=== PATIENT | female | born 1980 | race Caucasian/White ===

== ENCOUNTER 2020-02-21 09:18 | Outpatient (CLI) | payer OTHER ==
--- NOTE | 2020-02-21 10:41 | RAD ---
RIGHT KNEE 4 VIEWS: Date: 02/21/2020 HISTORY: Right knee pain. FINDINGS/IMPRESSION: No fracture, dislocation, or bone destruction is seen. There is fullness in the suprapatellar pouch, suspicious for joint effusion. POS: AH
== END 2020-02-21 09:19 | disposition home or self-care (01) ==
LOC: BICRAD 09:18
DX: S83.91XA Sprain of unspecified site of right knee, initial encounter (principal)

== ENCOUNTER 2020-03-11 12:38 | Outpatient (CLI) | payer OTHER ==
--- NOTE | 2020-03-11 15:48 | MRI ---
MRI RIGHT KNEE WITHOUT CONTRAST: Date: 03/11/2020 HISTORY: Strain to right knee. COMPARISON: Radiograph dated 02/21/2020. FINDINGS: Medial Meniscus: Full thickness radial tear posterior horn medial meniscus with a 3-4 mm gap. Tear is at the posterior horn/root attachment 8 mm from the footprint. 3 mm medial gutter extrusion medial meniscal body. Lateral Meniscus: Intact. ACL, PCL, MCL, and LCL are all intact. Extensor Mechanism: Quadriceps tendon, patella, and patella tendon are all intact. Cartilage: Patellofemoral compartment: A few 50-60% chondral fissures at the medial and lateral patellar facets . Trochlea is intact. Medial compartment: Low grade superficial chondral fraying. Lateral compartment: 50-60% chondral fissures of the posterior weightbearing surface lateral tibial plateau. Soft Tissues: Moderate joint effusion. Edema along the posterior medial meniscus. IMPRESSION: 1. Full thickness radial tear posterior horn medial meniscus near the root with a 3-4 mm gap. Gutter extrusion 3 mm medial meniscal body. 2. A few Grade III chondral fissures of the posterior weightbearing surface lateral tibial plateau a s well as of the medial and lateral patellar facets with the remainder of the cartilage intact. 3. Mild pericapsular edema along the posterior medial meniscal tear. POS: HOME
--- NOTE | 2020-03-11 16:07 | MRI ---
MRI LEFT KNEE WITHOUT CONTRAST: Date: 03/11/2020 HISTORY: Strain of left knee. [id number]. COMPARISON: None. FINDINGS: Medial Meniscus: Complex tear throughout the posterior horn medial meniscus is seen to the root with a few fibers hunter ining. There is gutter extrusion and loss of hoop stress. Lateral Meniscus: Free edge fraying throughout the lateral meniscal body with loss of the free edge of the posterior ho rn. No ACL graft is appreciated. PCL is intact. MCL and LCL are intact. Extensor Mechanism: The quadriceps tendon, patella, and patellar tendon are intact. Patellar tendon ACL graft harvest site is intact. Cartilage: Patellofemoral compartment: High grade chondral full thickness delamination at risk for displacement of the central patellar apex and lateral patellar facet. There is also extensive chondral fissuring and delamination along the trochlear groove and lateral trochlea. Medial compartment: Likely a prior OATS procedure of medial femoral condyle with adequate corporatio n of the bone plug. High grade chondral fissures along the posterior weightbearing surface medial fem oral condyle. Lateral compartment: 25-50% chondral fissures throughout the posterior weightbearing surface lateral tibial plateau. Bones: Large medial and lateral compartment osteophyte formation. No acute fracture. IMPRESSION: 1. Absent ACL graft. 2. Intact medial femoral condyle OATS graft. 3. Volume loss throughout the medial meniscus with loss of hoop stress and gutter extrusion. Vertica l longitudinal tear throughout the posterior horn. 4. Free edge fraying the lateral meniscal body with absent free edge and intermediate zone of fund raiser ior horn. 5. Large tricompartmental osteophytes. 6. Full thickness chondral delamination and fissuring of the patellofemoral compartments, also with large osteophytes. POS: HOME
== END 2020-03-11 12:39 | disposition home or self-care (01) ==
LOC: SCSMRI 12:38
DX: S83.91XA Sprain of unspecified site of right knee, initial encounter (principal); M25.761 Osteophyte, right knee; S83.241A Other tear of medial meniscus, current injury, right knee, initial encounter

== ENCOUNTER 2021-06-03 13:12 | Outpatient (CLI) | payer BC | END 2021-06-03 13:13 | disposition home or self-care (01) | LOC: LABBT 13:12 | PROVIDERS: ATTEND Specialist | DX: Z01.812 Encounter for preprocedural laboratory examination (principal); J35.01 Chronic tonsillitis; R06.83 Snoring; G47.30 Sleep apnea, unspecified | CPT/HCPCS: 85014 ==

== ENCOUNTER 2021-12-01 13:25 | Outpatient (CLI) | payer BC ==
[2021-12-01 14:24] LABS: BHCG - Serum Negative (NEGATIVE); Pregs Control Background? CLEAR/WHITE (CLR/WHITE); Pregs Control Bar Appear? YES (CONTROL BAR)
== END 2021-12-01 13:26 | disposition home or self-care (01) ==
LOC: LABBT 13:25
PROVIDERS: ATTEND Specialist
DX: Z01.812 Encounter for preprocedural laboratory examination (principal); J35.01 Chronic tonsillitis; Z20.822 Contact with and (suspected) exposure to COVID-19
CPT/HCPCS: 84703; 85014; 87811

== ENCOUNTER 2022-05-20 16:46 | Outpatient (CLI) | payer BC ==
[2022-05-20 17:28] LABS: BHCG - Serum Negative (NEGATIVE); Pregs Control Background? CLEAR/WHITE (CLR/WHITE); Pregs Control Bar Appear? YES (CONTROL BAR)
== END 2022-05-20 16:47 | disposition home or self-care (01) ==
LOC: LABBT 16:46
PROVIDERS: ATTEND Specialist
DX: Z01.812 Encounter for preprocedural laboratory examination (principal); J35.3 Hypertrophy of tonsils with hypertrophy of adenoids; J35.01 Chronic tonsillitis
CPT/HCPCS: 84703; 85014

== ENCOUNTER 2022-05-21 06:44 | Day surgery (SDC) | payer BC ==
[2022-05-20 09:51] VITALS: BMI 30.4
[2022-05-21] MEDS ORDERED: Ferric Subsulfate (ASTRINGYN) 8 GM VIAL ONE (09:12)
[2022-05-21] MEDS ORDERED: Fentanyl 100 MCG/2 ML VIAL ONE ×2 (09:16→10:28)
[2022-05-21] MEDS ORDERED: Midazolam HCl 2 mg/2 ml Vial ONE (09:17)
[2022-05-21] MEDS ORDERED: Famotidine/PF 20 mg/2ml Vial ONE (09:22)
[2022-05-21] MEDS ORDERED: SUGAMMADEX SODIUM 200 MG/2 ML VIAL ONE (09:22)
[2022-05-21] MEDS ORDERED: Ondansetron PF 4 MG/2 ML Vial ONE (09:25)
[2022-05-21] MEDS ORDERED: Rocuronium Bromide 10 MG/ML (10ML VIAL) ONE (09:25)
[2022-05-21] MEDS ORDERED: Lidocaine 1% PF 5 ML VIAL ONE (09:25)
[2022-05-21] MEDS ORDERED: PROPOFOL 200 MG/20 ML VIAL ONE (09:25)
[2022-05-21] MEDS ORDERED: ePHEDrine 50 MG/ML VIAL ONE (09:25)
[2022-05-21] MEDS ORDERED: Dexamethasone 20 MG/5 ML VIAL ONE (09:25)
[2022-05-21] MEDS ORDERED: Hydrocodone-Acetamin 15 ML UDCUP ONE (11:23)
== END 2022-05-21 12:04 | disposition home or self-care (01) ==
LOC: SDC 06:44
PROVIDERS: ATTEND Specialist
PROC: 0CTPXZZ Resection of Tonsils, External Approach (ICD-10-PCS; principal; 2022-05-21)
DX: J35.01 Chronic tonsillitis (principal); J34.89 Other specified disorders of nose and nasal sinuses; K21.9 Gastro-esophageal reflux disease without esophagitis; Z87.891 Personal history of nicotine dependence; Z79.899 Other long term (current) drug therapy; Z88.1 Allergy status to other antibiotic agents; Z88.2 Allergy status to sulfonamides; Z88.8 Allergy status to other drugs, medicaments and biological substances
CPT/HCPCS: 88304; J1100; J2250; J2405; J2704; J3010; J3490; S0028

== ENCOUNTER 2024-04-05 15:52 | Outpatient (CLI) | payer BC ==
[2024-04-05 16:36] LABS: #Basophils 0.07 10x3/uL (0.0-0.2); %Basophils 0.8 % (0.0-1.0); %Eosinophils 2.5 % (0.0-10.0); %Lymphocytes 32.5 % (21.0-51.0); %Monocytes 8.6 % (0.0-10.0); %Neutrophils 55.4 % (42.0-75.0); Hematocrit 42.6 % (36.0-47.0); Hemoglobin 14.8 g/dL (12.0-16.0); Mean Corpuscular HGB CONC 34.7 g/dL (32.0-36.0); Mean Corpuscular Hemoglobin 32.7 pg (27.0-31.0); Mean Corpuscular Volume 94.2 fL (78.0-98.0); Mean Platelet Volume 12.3 fL (7.4-10.4); Platelet Count 204 10x3/uL (130-400); RBC Distribution Width 13.2 % (11.5-14.5); Red Blood Cell (RBC) Count 4.52 mill/uL (4.20-5.40)
[2024-04-05 16:41] LABS: Bilirubin Negative (Negative); Blood, Urine Negative (Negative); Clarity Clear (Clear); Glucose, Urine (Dipstick) Normal (Negative); Ketone, Urine Negative (Negative); Leukocyte Negative Leu/uL (Negative); Nitrite Negative (Negative); Protein, Urine (Dipstick) Negative (Neg-Trace); Specific Gravity, Urine 1.009 (1.002-1.036); Urobilinogen Normal mg/dL (Less than 2); pH, Urine 6.5 (5.0-9.0)
[2024-04-05 16:53] LABS: PTT 27.7 sec (22.9-36.1); Prothrombin Time 13.6 sec (12.0-14.7)
[2024-04-05 17:08] LABS: Anion Gap 16 mmol/L (10-20); BUN (Urea Nitrogen) 9 mg/dL (7.0-18.7); Calc. Creatinine Clearance 0 mL/min (70-130); Calcium 9.1 mg/dL (7.8-10.44); Carbon Dioxide 21 mmol/L (22-29); Chloride 105 mmol/L (98-107); Estimated GFR 110; Glucose 97 mg/dL (70-105); Potassium 3.7 mmol/L (3.5-5.1); Sodium 138 mmol/L (136-145)
== END 2024-04-05 15:53 | disposition home or self-care (01) ==
LOC: LABBT 15:52
PROVIDERS: ATTEND Orthopaedic Surgery
DX: Z01.818 Encounter for other preprocedural examination (principal); M17.0 Bilateral primary osteoarthritis of knee
CPT/HCPCS: 71046; 80048; 81003; 85025; 85610; 85730; 87081; 93005; 93010

== ENCOUNTER 2024-04-10 06:50 | Observation (INO) | payer BC ==
[2024-04-05 16:20] VITALS: BMI 32.6
[2024-04-10] MEDS ORDERED: Tranexamic Acid 1,000 MG/10 ML VIAL ONE (07:06)
[2024-04-10] MEDS ORDERED: Vancomycin (BATCH) 1.5 GM/300 ML BAG ONE (07:07)
[2024-04-10] MEDS ORDERED: CEFAZOLIN 2 GM VIAL ONE (07:07)
[2024-04-10] MEDS ORDERED: Sodium Chloride 0.9% 100 ML ONE (07:07)
[2024-04-10] MEDS ORDERED: Midazolam HCl 2 mg/2 ml Vial ONE ×2 (07:29→07:47)
[2024-04-10] MEDS ORDERED: Ropivacaine 0.5% HCl/PF (150 MG/30 ML VIAL) ONE (07:29)
[2024-04-10] MEDS ORDERED: fentaNYL 50 mcg/mL 1 mL Vial ONE ×5 (07:29→13:16)
[2024-04-10] MEDS ORDERED: Acetaminophen 500 MG TAB ONE (07:40)
[2024-04-10] MEDS ORDERED: PROPOFOL 20 ML ONE (07:47)
[2024-04-10] MEDS ORDERED: fentaNYL PF 100 MCG/2 ML SYRINGE ONE ×2 (07:47→09:14)
[2024-04-10] MEDS ORDERED: Clindamycin/D5W 600 mg/50 ml Premix Bag ONE (07:49)
[2024-04-10] MEDS ORDERED: Bupivacaine 0.25% HCL 30 ML VIAL ONE (07:52)
[2024-04-10] MEDS ORDERED: EPINEPHrine 1 MG/ML VIAL ONE (07:52)
[2024-04-10] MEDS ORDERED: methylPREDNISolone Acetate 40 mg/ml Vial ONE (08:08)
[2024-04-10] MEDS ORDERED: Lidocaine 1% (PF) 30 ML VIAL ONE (08:08)
[2024-04-10] MEDS ORDERED: Ondansetron PF 4 MG/2 ML Vial IVP PRN ×2 (08:45→11:26)
[2024-04-10] MEDS ORDERED: Dexamethasone 4 mg/ml Vial ONE (08:45)
[2024-04-10] MEDS ORDERED: Promethazine HCl 25 MG/ML VIAL IM PRN ×2 (08:45→11:26)
[2024-04-10] MEDS ORDERED: HYDROcodone/Acetaminophen 10/325 mg Tablet PO PRN (08:45)
[2024-04-10] MEDS ORDERED: Ondansetron PF 4 MG/2 ML Vial ONE (08:45)
[2024-04-10] MEDS ORDERED: Zolpidem Tartrate 5 MG TAB PO PRN ×2 (08:45→11:26)
[2024-04-10] MEDS ORDERED: traMADol HCl 50 MG TAB PO PRN ×2 (08:45)
[2024-04-10] MEDS ORDERED: Ropivacaine 0.2% 550 ML 550 ML NERVE BLCK SCH (08:45)
[2024-04-10] MEDS ORDERED: HYDROmorphone 0.5 MG/0.5 ML SYRINGE ONE ×2 (09:59→12:10)
[2024-04-10] MEDS ORDERED: HYDROmorphone 2 MG/ML VIAL ONE (10:28)
[2024-04-10] MEDS ORDERED: Acetaminophen 325 MG TAB PO PRN (11:26)
[2024-04-10] MEDS ORDERED: diphenhydrAMINE 25 MG CAP PO PRN (11:26)
[2024-04-10] MEDS ORDERED: Tranexamic Acid 1,000 MG in Sodium Chloride 0.9% 100 ML IVPB SCH (11:30)
[2024-04-10] MEDS: Ketorolac Tromethamine 30 MG (1 mL) VIAL IVP SCH (14:59)
[2024-04-10] MEDS: Sodium Chloride 0.9% 1,000 ML IV SCH (14:59)
[2024-04-10] MEDS: Clindamycin/D5W 900 MG in Premix 1 BAG IVPB SCH (15:11)
[2024-04-10] MEDS: fentaNYL 50 mcg/mL 1 mL Vial SLOW IVP PRN (15:13)
[2024-04-10] MEDS: HYDROcodone/Acetaminophen 10/325 mg Tablet PO PRN (15:14)
[2024-04-10] MEDS: Vancomycin (BATCH) 1.5 GM in Premix 1 BAG IVPB SCH (20:30)
[2024-04-10] MEDS ORDERED: AMPHETAMINE PO SCH (21:00)
[2024-04-10] MEDS ORDERED: DEXTROAMPHETAMINE PO SCH (21:00)
[2024-04-10] MEDS: Aspirin 81 mg Enteric Coated Tablet PO SCH (21:09)
[2024-04-11 03:53] VITALS: TEMP 98.4
[2024-04-11 06:02] LABS: Hemoglobin 11.5 g/dL (12.0-16.0); Mean Corpuscular HGB CONC 33.8 g/dL (32.0-36.0); Mean Corpuscular Hemoglobin 33.2 pg (27.0-31.0); Mean Corpuscular Volume 98.3 fL (78.0-98.0); Mean Platelet Volume 12.2 fL (7.4-10.4); Platelet Count 198 10x3/uL (130-400); RBC Distribution Width 13.3 % (11.5-14.5); Red Blood Cell (RBC) Count 3.46 mill/uL (4.20-5.40)
[2024-04-11 08:09] VITALS: BP 122/74
[2024-04-11] MEDS: Ferrous Gluconate 324 MG TAB PO SCH (08:11)
[2024-04-11] MEDS: Pantoprazole DR 40 MG TAB PO SCH (08:11)
[2024-04-11] MEDS: Senokot S 8.6-50 MG TAB PO SCH (08:11)
[2024-04-11] MEDS: Sertraline 100 MG TAB PO SCH (08:11)
[2024-04-11] MEDS: Multivitamin W/ Minerals 1 TAB PO SCH (08:11)
[2024-04-11] MEDS: FLU (Fluarix Triv) TS24-25(6MOS UP)/PF 45 MCG/0.5 ML Syringe IM ONE (11:06)
== END 2024-04-11 11:09 | disposition home or self-care (01) ==
LOC: SDC 06:50 → SURG A 13:43 → SDC 16:06
PROVIDERS: ADMIT Orthopaedic Surgery; ATTEND Orthopaedic Surgery
PROC: 0SRD0JZ Replacement of Left Knee Joint with Synthetic Substitute, Open Approach (ICD-10-PCS; principal; 2024-04-11)
PROC: 0S9C3ZZ Drainage of Right Knee Joint, Percutaneous Approach (ICD-10-PCS; 2024-04-11)
PROC: 2W5RXYZ Removal of Other Device on Left Lower Leg (ICD-10-PCS; 2024-04-11)
DX: M17.0 Bilateral primary osteoarthritis of knee (principal); K21.9 Gastro-esophageal reflux disease without esophagitis; F32.A Depression, unspecified; F90.9 Attention-deficit hyperactivity disorder, unspecified type; Z98.890 Other specified postprocedural states; Z79.899 Other long term (current) drug therapy; Z87.891 Personal history of nicotine dependence; Z88.2 Allergy status to sulfonamides; Z88.8 Allergy status to other drugs, medicaments and biological substances; Z96.659 Presence of unspecified artificial knee joint
CPT/HCPCS: 0055T; 20610; 20680; 27447; 64448; 36415; 85027; A4306; C1713; C1776; C1889; J0171; J0665; J1010; J1100; J1885; J2250; J2405; J2704; J2795; J3010; J3370; J3490; J7030

== ENCOUNTER 2024-07-05 11:09 | Observation (INO) | payer BC ==
[2024-07-05] MEDS ORDERED: Rocuronium Bromide 10 MG/ML (10ML VIAL) ONE (12:08)
[2024-07-05] MEDS ORDERED: PROPOFOL 20 ML ONE (12:09)
[2024-07-05] MEDS ORDERED: fentaNYL 50 mcg/mL 1 mL Vial ONE ×2 (12:24→13:31)
[2024-07-05] MEDS ORDERED: Midazolam HCl 2 mg/2 ml Vial ONE (12:25)
[2024-07-05] MEDS ORDERED: fentaNYL PF 100 MCG/2 ML SYRINGE ONE ×3 (12:39→13:50)
[2024-07-05] MEDS ORDERED: Bupivacaine 0.25% HCL 30 ML VIAL ONE (12:43)
[2024-07-05 12:52] LABS: #Basophils 0.06 10x3/uL (0.0-0.2); %Eosinophils 3.3 % (0.0-10.0); %Lymphocytes 28.1 % (21.0-51.0); %Monocytes 10.8 % (0.0-10.0); %Neutrophils 56.6 % (42.0-75.0); Hematocrit 39.6 % (36.0-47.0); Hemoglobin 13.5 g/dL (12.0-16.0); Mean Corpuscular HGB CONC 34.1 g/dL (32.0-36.0); Mean Corpuscular Hemoglobin 32.1 pg (27.0-31.0); Mean Corpuscular Volume 94.3 fL (78.0-98.0); Mean Platelet Volume 12.1 fL (7.4-10.4); Platelet Count 160 10x3/uL (130-400); RBC Distribution Width 12.8 % (11.5-14.5)
[2024-07-05] MEDS ORDERED: Esmolol 100 MG/10 ML VIAL ONE (13:12)
[2024-07-05] MEDS ORDERED: Lidocaine 1.5% w/Epi 1:200K 30 ML VIAL (Epid Use) ONE (13:12)
[2024-07-05] MEDS ORDERED: Dexamethasone 20 MG/5 ML VIAL ONE (13:12)
[2024-07-05] MEDS ORDERED: PHENYLEPHRINE-NS 100 MCG/ML 10 ML SYRINGE ONE (13:18)
[2024-07-05] MEDS ORDERED: SUGAMMADEX SODIUM 200 MG/2 ML VIAL ONE (13:28)
[2024-07-05] MEDS ORDERED: FENTANYL 500 MCG/10 ML VIAL 500 MCG, Bupivacaine 0.75% 10 ML in Sodium Chloride 0.9% 80 ML EPIDURAL SCH (13:30)
[2024-07-05] MEDS ORDERED: Moisturizing Cream (Eucerin) 113 GM JAR TOP PRN (13:30)
[2024-07-05] MEDS ORDERED: Naloxone HCl 0.4 mg/ml Vial IV PRN (13:30)
[2024-07-05] MEDS ORDERED: diphenhydrAMINE 25 MG CAP PO PRN ×2 (13:30→13:52)
[2024-07-05] MEDS ORDERED: Ondansetron PF 4 MG/2 ML Vial IVP PRN ×2 (13:30→13:52)
[2024-07-05] MEDS ORDERED: diphenhydrAMINE 50 MG/ML VIAL IVP PRN (13:30)
[2024-07-05] MEDS ORDERED: Naloxone HCl 0.4 mg/ml Vial IVP PRN (13:30)
[2024-07-05] MEDS ORDERED: traMADol HCl 50 MG TAB PO PRN ×2 (13:30)
[2024-07-05] MEDS ORDERED: Promethazine HCl 25 MG SUPP PR PRN (13:30)
[2024-07-05] MEDS ORDERED: Bupivacaine 0.25% 10 ML VIAL EPIDURAL PRN (13:30)
[2024-07-05] MEDS ORDERED: diphenhydrAMINE 50 MG/ML VIAL IM PRN (13:30)
[2024-07-05] MEDS ORDERED: Zolpidem Tartrate 5 MG TAB PO PRN ×2 (13:30→13:52)
[2024-07-05] MEDS ORDERED: HYDROcodone/Acetaminophen 5/325 mg Tablet PO PRN (13:30)
[2024-07-05] MEDS ORDERED: Promethazine HCl 25 MG/ML VIAL IM PRN ×2 (13:30→13:52)
[2024-07-05] MEDS ORDERED: Lidocaine 2% PF 5 ML VIAL ONE (13:31)
[2024-07-05] MEDS ORDERED: Acetaminophen 325 MG TAB PO PRN (13:52)
[2024-07-05] MEDS ORDERED: HYDROcodone/Acetaminophen 10/325 mg Tablet PO PRN ×2 (13:52)
[2024-07-05] MEDS ORDERED: LEVONORGESTREL IUD VAG SCH (15:00)
[2024-07-05 15:39] VITALS: BMI 33.3
[2024-07-05] MEDS: Sodium Chloride 0.9% 1,000 ML IV SCH (17:10)
[2024-07-05] MEDS: CEFAZOLIN 2 GM in Sodium Chloride 0.9% 100 ML IVPB SCH (17:33)
[2024-07-05] MEDS: Ketorolac Tromethamine 30 MG (1 mL) VIAL IVP SCH (17:33)
[2024-07-05] MEDS ORDERED: AMPHETAMINE PO SCH (21:00)
[2024-07-05] MEDS ORDERED: DEXTROAMPHETAMINE PO SCH (21:00)
[2024-07-05] MEDS: Aspirin 81 mg Enteric Coated Tablet PO SCH (21:16)
[2024-07-05] MEDS: Senokot S 8.6-50 MG TAB PO SCH (21:16)
[2024-07-05] MEDS: Ferrous Gluconate 324 MG TAB PO SCH (21:16)
[2024-07-05] MEDS: HYDROcodone/Acetaminophen 5/325 mg Tablet PO PRN (21:17)
[2024-07-05 21:32] VITALS: TEMP 98.1
[2024-07-06 07:03] LABS: Hematocrit 36.5 % (36.0-47.0); Hemoglobin 12.1 g/dL (12.0-16.0); Mean Corpuscular HGB CONC 33.2 g/dL (32.0-36.0); Mean Corpuscular Hemoglobin 31.8 pg (27.0-31.0); Mean Corpuscular Volume 96.1 fL (78.0-98.0); Mean Platelet Volume 12.3 fL (7.4-10.4); Platelet Count 166 10x3/uL (130-400); RBC Distribution Width 12.8 % (11.5-14.5)
[2024-07-06 08:44] VITALS: BP 136/82
[2024-07-06] MEDS: Multivitamin W/ Minerals 1 TAB PO SCH (09:17)
[2024-07-06] MEDS: Pantoprazole 40 MG DR.TAB PO SCH (09:18)
[2024-07-06] MEDS: Sertraline 100 MG TAB PO SCH (09:18)
== END 2024-07-06 12:13 | disposition home or self-care (01) ==
LOC: SDC 11:09 → SURG B 13:55
PROVIDERS: ADMIT Orthopaedic Surgery; ATTEND Orthopaedic Surgery
PROC: 0SSDXZZ Reposition Left Knee Joint, External Approach (ICD-10-PCS; principal; 2024-07-06)
PROC: 3E0T3BZ Introduction of Anesthetic Agent into Peripheral Nerves and Plexi, Percutaneous Approach (ICD-10-PCS; 2024-07-06)
DX: M25.662 Stiffness of left knee, not elsewhere classified (principal); M19.90 Unspecified osteoarthritis, unspecified site; K21.9 Gastro-esophageal reflux disease without esophagitis; F32.A Depression, unspecified; F90.9 Attention-deficit hyperactivity disorder, unspecified type; Z96.652 Presence of left artificial knee joint; Z87.59 Personal history of other complications of pregnancy, childbirth and the puerperium; Z87.891 Personal history of nicotine dependence; Z90.89 Acquired absence of other organs; Z88.2 Allergy status to sulfonamides; Z88.1 Allergy status to other antibiotic agents; Z88.8 Allergy status to other drugs, medicaments and biological substances; Z79.1 Long term (current) use of non-steroidal anti-inflammatories (NSAID); Z79.51 Long term (current) use of inhaled steroids; Z79.899 Other long term (current) drug therapy
CPT/HCPCS: 36415; 85025; 85027; J0665; J1100; J1885; J2250; J2704; J3010; J3490; J7030